=== PATIENT | male | born 1955 | race Caucasian/White ===

== ENCOUNTER 2021-04-19 04:45 | Emergency (ER) | payer MEDICARE, OTHER, SELFPAY ==
[2021-04-19 04:54] VITALS: BP 128/69; PULSE 77; RESP 17; TEMP 39.3; O2SAT 95; BMI 26.6
--- NOTE | 2021-04-19 05:13 | XRR_ITS ---
PROCEDURE INFORMATION: Exam: XR Chest Exam date and time: 04/19/2021 5:24 AM Age: 65 years old Clinical indication: Patient HX: Onset of fever this a. M. TECHNIQUE: Imaging protocol: XR of the chest. Views: 2 views. COMPARISON: No relevant prior studies available. FINDINGS: Lungs: There is a hazy retrocardiac opacity, which may represent atelectasis or pneumonia in the adequate clinical setting. Pleural spaces: Unremarkable. No pleural effusion. No pneumothorax. Heart/Mediastinum: Unremarkable. No cardiomegaly. Vasculature: Aortic arch atherosclerotic calcifications seen. Bones/joints: Unremarkable. XR/XR chest 2V* [id number] IMPRESSION: Left basilar atelectasis versus early pneumonia, clinical correlation is recommended.
--- NOTE | 2021-04-19 05:15 | ED_ITS ---
Documented by User: Thad Plata MD 04/19/21 05:17 HPI - Fever General: Chief Complaint: Fever Stated Complaint: Fever Time Seen by Provider: 04/19/21 04:48 Source: patient and family History of Present Illness: HPI Narrative: Patient is a well-appearing 65-year-old male from home by private vehicle accompanied by his seen for fever. He states that he was working in the presence of an employee outdoors over the last several days who complained of a fever and stomach bug. The illness was not so severe that he stopped working. The patient was asymptomatic until last night at which time he started to feel warm. He ate dinner as normally and went to bed. found him to be febrile and measured his forehead to be 105.0 Fahrenheit at roughly 3 in the morning. She decided to bring him to the hospital for evaluation. She states that he was somewhat altered and unsteady on his feet, but was able to walk to the car without any difficulty. He denies headache, visual disturbance, neck pain, pain with motion of the neck, chest pain, shortness of breath, cough, abdominal pain, nausea, dysuria, frequency, diarrhea, constipation. Vital signs on arrival were completely stable with exception of fever 102.7. He and his have not been vaccinated for COVID-19. He has no other acute complaints. Review of Systems General: Reports: 10 or more systems reviewed and unremarkable except in HPI and below Physical Exam Const: COMMON NORMALS: no acute distress, patient oriented x3 and alert OTHER: Patient is warm to the touch, but otherwise has a completely normal and reassuring exam. HENMT: COMMON NORMALS: normocephalic and atraumatic HEAD & SCALP: no rmocephalic and atraumatic Eye: COMMON NORMALS: Equal, round and reactive pupils present, EOMs intact bilaterally and no scleral icterus PUPIL: Yes Equal, round and reactive pupils present Resp: COMMON NORMALS: normal respiratory effort and No retractions Cardio: COMMON NORMALS: regular rate, regular rhythm and No murmurs present (Cardio) RATE: regular rate RHYTHM: regular rhythm GI: COMMON NORMALS: Normal to inspection, nondistended, normoactive bowel sounds present, Soft to palpation and non-tender PALPATION: Yes Soft to palpation Neuro: COMMON NORMALS: patient oriented x3 SENSORIUM/ORIENTATION: Yes alert Skin: COMMON NORMALS: no rashes or lesions noted GENERAL SKIN EXAM: no rashes or lesions noted Course Vital Signs: Vital signs: Vital Signs Temperature 102.7 F H 04/19/21 05:28 Pulse Rate 66 04/19/21 07:00 Respiratory Rate 18 04/19/21 07:00 Blood Pressure 120/59 04/19/21 07:00 Pulse Oximetry 92 04/19/21 07:00 MDM - Fever Lab Data: Labs: Lab Results 04/19/21 04/19/21 Range/Units 05:25 06:54 Urine Color Yellow (Yellow) Urine Appearance Clear (CLEAR) Urine pH 5 (5-7) Ur Specific Gravit y 1.020 (1.005-1.030) Urine Protein Trace (Negative) Urine Glucose (UA) Norm (Normal) Urine Ketones 1+ H (Negative) Urine Blood 2+ H (Negative) Urine Nitrate Negative (Negative) Urine Bilirubin Neg (Negative) Urine Urobilinogen Norm (Negative) mg/dL Ur Leukocyte Enriqueta ase Negative (Negative) Urine RBC 0-4 H (0-2) /hpf Urine WBC None (0-5) /hpf Ur Squamous Epith Cells 5-10 H (0-5) /hpf Amorphous Sediment Not Reportable Urine Bacteria 1+ H (NONE) /hpf Urine Mucus 3+ /hpf SARS-CoV-2 Ag (Rap id) Negative (Negative) Discharge Plan Discharge Patient Disposition: Home Clinical Impression: Viral infection, Pneumonia Condition: Stable Prescriptions: New doxycycline hyclate 100 mg capsule 100 mg PO BID 14 Days Qty: 28 RF: 0 Discharge Orders: Discharge ED (Routine); Ordered 04/19/21 Ordered By: Devonte Aguillon Discharge Diet: Usual diet Discharge Activity: Increase activity as tolerated Patient Instructions: Opioid Safety Sign Out Sign Out Data: Patient Sign Out occurred on 04/19/21 at 06:30. Patient's care was discussed, and care was transferred from to Devonte Aguillon DO. Coding Level of Care Code ED Storage Garage Manager for Chg Fwd Exam Detailed Documented by User: Devonte AdamsDO [email or web address] 04/19/21 08:23 HPI - Fever General: Chief Complaint: Fever Stated Complaint: Fever Time Seen by Provider: 04/19/21 04:48 Course Vital Signs: Vital signs: Vital Signs Temperature 102.7 F H 04/19/21 05:28 Pulse Rate 66 04/19/21 07:00 Respiratory Rate 18 04/19/21 07:00 Blood Pressure 120/59 04/19/21 07:00 Pulse Oximetry 92 04/19/21 07:00 MDM - Fever MDM Narrative: Medical decision making narrative: Care turned over from Dr. Plata at change of shift. Chart reviewed urine does not show any significant UTI does have a few squamous cells. Vital signs are stable. His chest x-ray shows questionable basilar infiltrate read by radiology as labs looks like it is actually bilateral. His Covid was negative on rapid. PCR has been sent out. His mentioned that he has had ticks lately. Organ to start him on doxycycline tick panel and blood cultures were done return if has further problems vital signs are stable at this point. He would be a candidate for monoclonal antibody infusions if his PCR comes back positive discussed this with him that is something they would be interested in doing and would return for we will call him when we get the PCR back. All other questions from the patient and his were answered and explicit exquisite detail. Lab Data: Labs: Lab Results 04/19/21 04/19/21 Range/Units 05:25 06:54 Urine Color Yellow (Yellow) Urine Appearance Clear (CLEAR) Urine pH 5 (5-7) Ur Specific Gravit y 1.020 (1.005-1.030) Urine Protein Trace (Negative) Urine Glucose (UA) Norm (Normal) Urine Ketones 1+ H (Negative) Urine Blood 2+ H (Negative) Urine Nitrate Negative (Negative) Urine Bilirubin Neg (Negative) Urine Urobilinogen Norm (Negative) mg/dL Ur Leukocyte Enriqueta ase Negative (Negative) Urine RBC 0-4 H (0-2) /hpf Urine WBC None (0-5) /hpf Ur Squamous Epith Cells 5-10 H (0-5) /hpf Amorphous Sediment Not Reportable Urine Bacteria 1+ H (NONE) /hpf Urine Mucus 3+ /hpf SARS-CoV-2 Ag (Rap id) Negative (Negative) Discharge Plan Discharge Patient Disposition: Home Clinical Impression: Viral infection, Pneumonia Condition: Stable Prescriptions: New doxycycline hyclate 100 mg capsule 100 mg PO BID 14 Days Qty: 28 RF: 0 Discharge Orders: Discharge ED (Routine); Ordered 04/19/21 Ordered By: Devonte Aguillon Discharge Diet: Usual diet Discharge Activity: Increase activity as tolerated Patient Instructions: Opioid Safety Sign Out Sign Out Data: Patient Sign Out occurred on 04/19/21 at 06:30. Patient's care was discussed, and care was transferred from to Devonte Aguillon DO. Coding Level of Care Code ED Storage Garage Manager for Chg Fwd Exam Detailed
[2021-04-19] MEDS: ibuprofen 600 mg Tablet PO (05:23)
[2021-04-19 05:28] VITALS: TEMP 39.3
[2021-04-19 05:55] LABS: SARS Covid-2 Antigen Negative (Negative)
[2021-04-19 06:11] VITALS: BP 129/57; PULSE 73; O2SAT 89
[2021-04-19 07:00] VITALS: BP 120/59; PULSE 66; RESP 18; O2SAT 92
[2021-04-19 07:46] LABS: Protein Urine Trace (Negative); Urine Appearance Clear (CLEAR); Urine Color Yellow (Yellow); pH Urine 5 (5-7)
[2021-04-19 07:47] LABS: Add Urine Culture? No; Add Urine Microscopic? YES; Bacteria Urine 1+ /hpf; Bilirubin Urine Neg (Negative); Blood Urine 2+ (Negative); Glucose Urine UA Norm (Normal); Ketones Urine 1+ (Negative); Leukocyte Esterase Urine Negative (Negative); Mucus Urine 3+ /hpf; Nitrate Urine Negative (Negative); RBC Urine 0-4 /hpf (0-2); Urobilinogen Urine Norm (Negative)
[2021-04-19 08:36] VITALS: BP 115/63; RESP 18; TEMP 37.1; O2SAT 96
[2021-04-19 14:33] LABS: Coronavirus Test Green County Not Detected
--- NOTE | 2021-04-19 18:27 | PC.NURSE ---
notified pt's spouse of negative COVID test results
[2021-04-20 11:52] LABS: Lyme AB Screen <0.90 index
[2021-04-25 17:23] LABS: E. Chaffeensis AB IGG <1:64; E. Chaffeensis AB IGM <1:20
[2021-04-26 17:13] LABS: RMSF IGG NOT DETECTED; RMSF IGM NOT DETECTED
== END 2021-04-19 08:50 | disposition home or self-care (01) ==
PROVIDERS: Student in an Organized Health Care Education/Training Program; Emergency Provider Family Medicine
DX: J18.9 Pneumonia, unspecified organism (principal); B34.9 Viral infection, unspecified; Z20.822 Contact with and (suspected) exposure to COVID-19
CPT/HCPCS: 36415; 71046; 81001; 86618; 86666; 86757; 87040; 87426; 87635; 99283

== ENCOUNTER 2021-05-02 16:14 | Emergency (ER) | payer MEDICARE, OTHER, SELFPAY ==
[2021-05-02] VITALS (7 sets, daily range): BP systolic 172–202; BP diastolic 99–107; PULSE 60–86; RESP 16–22; TEMP 36.6; O2SAT 98; BMI 25.7
--- NOTE | 2021-05-02 16:57 | ED_ITS ---
HPI - General Adult General: Chief complaint: General Medical Stated complaint: leg numbness and cramping Time Seen by Provider: 05/02/21 16:47 History of Present Illness: HPI narrative: This patient is a 65-year-old male who presents to the emergency department complaint of muscle cramps and muscle pain. Patient was seen in the emergency department 1 week ago for sudden onset of spiking fever. Patient did have tick titers drawn was started on doxycycline . Patient states he has been doing well but changed his diet updated the doxycycline. Patient states today started having some muscle cramps and pains where his legs feel weak. States yesterday after mowing the yard he really started having cramps. They progressed. Patient was seen at the PCPs office and had some labs drawn and they were going to the [employer] food store to get some health food supplements of magnesium. Patient states his legs gave out on him. Patient denies any significant pain or cramping at this time but describes soreness to his muscles. Patient also states his fingertips were tingling in his feet routinely earlier today. Right now everything feels fine. Patient denies any acute allergies or acute medical problems. Will do medical evaluation treat as needed Onset (ago): day(s) Radiation: non-radiation Severity: moderate Associated symptoms: Deny chest pain, dyspnea, headache(s), nausea, rash, palpitations or vomiting Review of Systems General: Reports: 10 or more systems reviewed and unremarkable except in HPI and below Const: Denies: fever(s), chills, body aches or fatigue Eyes: Denies: change in vision or blurry vision ENMT: Denies: throat pain, hoarseness or mouth pain Card: Denies: chest pain, palpitations, irregular heart rhythm, edema, swelling of feet/ankles or lightheadedness Resp: Denies: dyspnea, productive cough, non-productive cough, wheezing or pain on inspiration GI: Denies: abdominal pain, nausea or vomiting : Denies: flank pain, dysuria, urinary frequency, urinary urgency or urinary hesitancy Musc: Reports: extremity pain; Denies: neck pain, back pain, extremity swelling, joint pain, joint swelling, joint redness, joint warmth or limited range of motion Skin/Breast: Denies: rash, pruritus, erythema or skin tenderness Neuro: Denies: headache(s), numbness in extremities or weakness in extremities Psych: Denies: anxiety or depression Physical Exam Const: COMMON NORMALS: no acute distress, average body habitus, patient oriented x3, no limitations, healthy appearing, alert and well nourished HENMT: COMMON NORMALS: normocephalic, atraumatic, hearing grossly normal bilaterally, external ears normal, EAC's normal, TM's normal bilaterally, Normal external nose present, Normal nasal mucous membranes and turbinates present, moist oral mucous membranes, oropharynx normal, dentition normal and gingiva normal HEAD & SCALP: normocephalic and atraumatic NOSE: Normal external nose present and Normal nasal mucous membranes and turbinates present EXTERNAL EAR: Yes external ears normal EXTERNAL AUDITORY CANAL: EAC's normal TYMPANIC MEMBRANE: TM's normal bilaterally Neck/C-Spine: COMMON NORMALS: full ROM, no lymphadenopathy, supple, no meningeal signs, no JVD, Thyroid normal and No carotid bruits THYROID: Thyroid normal Chest: COMMONS NORMALS: normal inspection of the chest, normal palpation of entire chest wall, normal inspection of the breasts and normal palpation of the breasts Breast/axilla inspection: Yes normal inspection of the breasts BREAST/AXILLA PALPATION: Yes normal palpation of the breasts Resp: COMMON NORMALS: normal respiratory effort, No retractions, No use of accessory muscles, clear to auscultation bilaterally and percussion normal AUSCULTATION: clear to auscultation bilaterally PERCUSSION: percussion normal Cardio: COMMON NORMALS: no JVD, regular rate, regular rhythm, S1 normal heart sound present, S2 normal heart sound present, No gallops present (Cardio), No clicks present (Cardio), No murmurs present (Cardio), No rub (Cardio) and Peripheral pulses 2+ throughout RATE: regular rate RHYTHM: regular rhythm HEART SOUNDS: S1 normal heart sound present and S2 normal heart sound present PERIPHERAL PULSES: Peripheral pulses 2+ throughout GI: COMMON NORMALS: Normal to inspection, nondistended, normoactive bowel sounds present, Soft to palpation, non-tender, No hepatosplenomegaly present, no masses and no bruits PALPATION: Yes Soft to palpation and Yes No hepatosplenomegaly present : COMMON NORMALS: Yes no CVA tenderness BLADDER/KIDNEY EXAM: Yes no CVA tenderness Back/Pelvis: COMMON NORMALS: no CVA tenderness, thoracic and lumbar spine normal to inspection, no thoracic nor lumbar tenderness, thoraco-lumbar ROM normal and straight leg raise negative bilaterally Extremity: COMMON NORMALS: normal to inspection, full ROM, capillary refill normal, no joint enlargement, no clubbing, cyanosis or edema, no calf tenderness and no pedal edema Neuro: COMMON NORMALS: patient oriented x3 SENSORIUM/ORIENTATION: Yes alert MENINGEAL SIGNS: Yes no meningeal signs Course Reevaluation(s): Reevaluation #1: Patient much improved after morphine. Patient's blood pressure down to 170/80. Did discuss at length with patient about arthralgias./Possible medication side effects of doxycycline. Await his current viral illness. Tick titers were negative for any acute findings. Discussed at length with patient about good blood pressure low control. Patient was offered additional blood pressure medication to help control blood pressure. Patient declines any additional prescriptions at this time Take all medications as prescribed. Keep blood pressure log as instructed. Avoid salt and caffeinated drinks. Follow-up with your primary care physician with blood pressure log and discuss possible other options for blood pressure control. Also discuss further with your PCP about any medications for pain if medication is not helping. Follow-up with primary care physician in 3 to 5 days after discharge from the ER. Time: 20:09 Vital Signs: Vital signs: Vital Signs Temperature 97.9 F 05/02/21 16:28 Pulse Rate 60 05/02/21 17:21 Respiratory Rate 20 H 05/02/21 19:35 Blood Pressure 198/103 05/02/21 17:21 Pulse Oximetry 98 05/02/21 17:21 MDM - General Adult MDM Narrative: Medical decision making narrative: Patient much improved after morphine. Patient's blood pressure down to 170/80. Did discuss at length with patient about arthralgias./Possible medication side effects of doxycycline. Await his current viral illness. Tick titers were negative for any acute findings. Discussed at length with patient about good blood pressure low control. Take all medications as prescribed. Keep blood pressure log as instructed. Avoid salt and caffeinated drinks. Follow-up with your primary care physician with blood pressure log and discuss possible other options for blood pressure control. Also discuss further with your PCP about any medications for pain if medication is not helping. Follow-up with primary care physician in 3 to 5 days after discharge from the ER. Medical Records: Attestation: I reviewed the patient's medical records. Lab Data: Attestation: I reviewed the patient's lab results. Labs: Lab Results 05/02/21 05/02/21 05/02/21 Range/Units 17:15 17:15 17:15 WBC 11.3 H (4.0-10.0) 10^3/ uL RBC 4.83 (4.1-5.3) 10^6/u L Hgb 15.1 (11.7-16.6) g/dL Hct 45.6 (42.0-52.0) % MCV 94.4 H (80-94) fL MCH 31.3 (28.0-34.0) pg MCHC 33.1 (30.0-36.0) g/dL RDW 12.6 (12.1-15.1) % Plt Count 286 (130-400) 10^3/c mm MPV 10.7 H (7.4-10.4) fL Neut % (Auto) 48.9 % Lymph % (Auto) 42.2 % [place] % (Auto) 7.7 % Eos % (Auto) 0.4 % Baso % (Auto) 0.4 % Neut # (Auto) 5.56 (1.8-7.7) 10^3/u L Lymph # (Auto) 4.8 (0.8-4.8) 10^3/u L [place] # (Auto) 0.9 (0.2-0.9) 10^3/u L Eos # (Auto) 0.1 (0.0-0.8) 10^3/u L Baso # (Auto) 0.0 (0.0-0.1) 10^3/u L Nucleated RBC % (a uto) 0 % Nucleated RBCs # 0.0 /100WBC Sodium Cancelled Potassium Cancelled Chloride Cancelled Carbon Dioxide Cancelled Anion Gap Cancelled BUN Cancelled Creatinine Cancelled GFR Calculation Cancelled Glucose Cancelled Calculated Osmolal ity Cancelled Calcium Cancelled Magnesium Cancelled Total Bilirubin Cancelled AST Cancelled ALT Cancelled Alkaline Phosphata se Cancelled Creatine Kinase (39-308) U/L Total Protein Cancelled Albumin Cancelled Globulin Cancelled Urine Color Yellow (Yellow) Urine Appearance Clear (CLEAR) Urine pH 7 (5-7) Ur Specific Gravit y 1.010 (1.005-1.030) Urine Protein Neg (Negative) Urine Glucose (UA) Norm (Normal) Urine Ketones Negative (Negative) Urine Blood Neg (Negative) Urine Nitrate Negative (Negative) Urine Bilirubin Neg (Negative) Urine Urobilinogen Norm (Negative) mg/dL Ur Leukocyte Enriqueta ase Negative (Negative) 05/02/21 05/02/21 Range/Units 18:04 18:04 WBC (4.0-10.0) 10^3/ uL RBC (4.1-5.3) 10^6/u L Hgb (11.7-16.6) g/dL Hct (42.0-52.0) % MCV (80-94) fL MCH (28.0-34.0) pg MCHC (30.0-36.0) g/dL RDW (12.1-15.1) % Plt Count (130-400) 10^3/c mm MPV (7.4-10.4) fL Neut % (Auto) % Lymph % (Auto) % [place] % (Auto) % Eos % (Auto) % Baso % (Auto) % Neut # (Auto) (1.8-7.7) 10^3/u L Lymph # (Auto) (0.8-4.8) 10^3/u L [place] # (Auto) (0.2-0.9) 10^3/u L Eos # (Auto) (0.0-0.8) 10^3/u L Baso # (Auto) (0.0-0.1) 10^3/u L Nucleated RBC % (a uto) % Nucleated RBCs # /100WBC Sodium 137 Potassium 4.0 Chloride 104 Carbon Dioxide 24 Anion Gap 13.0 BUN 12 Creatinine 0.5 L GFR Calculation 165.9 H Glucose 92 Calculated Osmolal ity 283 L Calcium 8.5 Magnesium 2.2 Total Bilirubin 0.4 AST 21 ALT 35 Alkaline Phosphata se 54 Creatine Kinase 81 (39-308) U/L Total Protein 6.9 Albumin 3.6 Globulin 3.3 Urine Color (Yellow) Urine Appearance (CLEAR) Urine pH (5-7) Ur Specific Gravit y (1.005-1.030) Urine Protein (Negative) Urine Glucose (UA) (Normal) Urine Ketones (Negative) Urine Blood (Negative) Urine Nitrate (Negative) Urine Bilirubin (Negative) Urine Urobilinogen (Negative) mg/dL Ur Leukocyte Enriqueta ase (Negative) Discharge Plan Discharge Patient Disposition: Home Clinical Impression: Arthralgia, Medication side effect, Hypertension Condition: Stable Prescriptions: New diclofenac sodium 75 mg tablet,delayed release (DR/EC) 75 mg PO BID PRN (Reason: pain) Qty: 20 RF: 0 No Action PreserVision AREDS [id number] Capsule 1 cap PO BID@0800,1800 RF: 0 Bystolic 5 mg tablet 5 mg PO DAILY@0800 RF: 0 Fish Oil 1 cap PO DAILY@0800 RF: 0 Vitamin D3 1 tab PO DAILY@0800 RF: 0 doxycycline hyclate 100 mg capsule 100 mg PO BID@0800,1800 RF: 0 Discharge Orders: Discharge ED (Routine); Ordered 05/02/21 Ordered By: Cam Varghese Discharge Diet: Advance as tolerated Discharge Activity: Increase activity as tolerated Patient Instructions: Opioid Safety Activity Restrictions/Additional Instructions: Alternate heat and ice as needed. Epson salt baths as needed. Take all medications as prescribed. Keep blood pressure log as instructed. Avoid salt and caffeinated drinks. Follow-up with your primary care physician with blood pressure log and discuss possible other options for blood pressure control. Also discuss further with your PCP about any medications for pain if medication is not helping. Follow-up with primary care physician in 3 to 5 days after discharge from the ER. Coding Level of Care Code ED Analog Design Engineer for Porfirio Fwkingsley Exam Comprehensive
[2021-05-02] MEDS: sodium chloride 0.9% 1,000 ML 999 ML IV (17:17)
[2021-05-02 17:25] LABS: Add Urine Microscopic? NO; Charge for UA Resulting for Rev
[2021-05-02 17:37] LABS: Basophils % 0.4 %; Eosinophils # 0.1 10^3/uL (0.0-0.8); Eosinophils % 0.4 %; Hematocrit 45.6 % (42.0-52.0); Hemoglobin 15.1 g/dL (11.7-16.6); Lymphocytes # 4.8 10^3/uL (0.8-4.8); Lymphocytes % 42.2 %; Mean Corpuscular HGB Conc 33.1 g/dL (30.0-36.0); Mean Corpuscular Hemoglobin 31.3 pg (28.0-34.0); Mean Corpuscular Volume 94.4 fL (80-94); Mean Platelet Volume 10.7 fL (7.4-10.4); Monocytes # 0.9 10^3/uL (0.2-0.9); Monocytes % 7.7 %; Neutrophils # 5.56 10^3/uL (1.8-7.7); Neutrophils % 48.9 %; Nucleated Red Blood Cells % 0 %; Platelet Count 286 10^3/cmm (130-400); Red Blood Count 4.83 10^6/uL (4.1-5.3); Red Cell Distribution Width 12.6 % (12.1-15.1); White Blood Count 11.3 10^3/uL (4.0-10.0)
[2021-05-02 17:58] LABS: Bilirubin Urine Neg (Negative); Blood Urine Neg (Negative); Glucose Urine UA Norm (Normal); Ketones Urine Negative (Negative); Leukocyte Esterase Urine Negative (Negative); Nitrate Urine Negative (Negative); Protein Urine Neg (Negative); Urine Appearance Clear (CLEAR); Urine Color Yellow (Yellow); Urobilinogen Urine Norm (Negative); pH Urine 7 (5-7)
[2021-05-02 18:43] LABS: Alanine Aminotransferase 35 U/L (0-41); Albumin Level 3.6 g/dL (3.5-5.2); Alkaline Phosphatase 54 IU/L (40-130); Aspartate Amino Transferase 21 U/L (0-40); Blood Urea Nitrogen 12 mg/dL (8-23); Calcium 8.5 mg/dL (8.5-10.5); Carbon Dioxide 24 mmol/L (22-29); Chloride 104 mmol/L (98-107); Globulin 3.3 g/dL (1.3-4.6); Glomerular Filtration Rate 165.9 mL/min (90-130); Glucose 92 mg/dL (65-115); Magnesium 2.2 mg/dL (1.7-2.3); Osmolality Calculated 283 mOsm/kg (285-295); Sodium 137 mmol/L (136-145); Total Bilirubin 0.4 mg/dL (0.15-1.2); Total Protein 6.9 g/dL (6.6-8.7)
[2021-05-02 19:01] LABS: Creatine Phosphokinase 81 U/L (39-308)
[2021-05-02] MEDS: ondansetron 2 mg/ML SDV 2 mL 4 MG IVP (19:30)
[2021-05-02] MEDS: morphine 4 mg/mL SDV 1 mL 2 MG IVP (19:35)
--- NOTE | 2021-05-02 20:40 | PC.NURSE ---
pt's very anxious and concerned about pt being discharged to home. [email or web address]
--- NOTE | 2021-05-02 20:44 | PC.NURSE ---
patient presented to waiting room after discharging patient; she requested to speak with the physician. Dr. Varghese and I met with the in the triage room after the patient had been discharged; during the transfer from the wheelchair to the car, the patient felt weak in the legs, but was able to transfer eventually to the car. The came back in to speak about her concerns and why we didn't find anything. Dr. Varghese explained his work up, his findings, his treatments to lower blood pressure and the offer to prescribe BP meds for home, like Norvasc. However, they declined for not wanting Meds from [facility]. Dr. Varghese offered to bring the patient back in for further evaluations but the stated no it's fine and walked out.
== END 2021-05-02 20:20 | disposition home or self-care (01) ==
PROVIDERS: Emergency Provider Emergency Medicine
DX: M25.50 Pain in unspecified joint (principal); T50.905A Adverse effect of unspecified drugs, medicaments and biological substances, initial encounter; I10 Essential (primary) hypertension
CPT/HCPCS: 80053; 81003; 82550; 83735; 85025; 96361; 96374; 96375; 99283; J2270; J2405; J7030

== ENCOUNTER 2021-07-28 06:00 | Outpatient (RCR) | payer MEDICARE, OTHER, SELFPAY | END 2021-08-24 23:59 | disposition home or self-care (01) | LOC: SPO 06:00 | PROVIDERS: Referring Provider Nurse Practitioner Family; Visit Provider Nurse Practitioner Family | DX: R26.89 Other abnormalities of gait and mobility (principal); Z84.89 Family history of other specified conditions; M26.81 Anterior soft tissue impingement | CPT/HCPCS: 97110; 97112; 97116; 97161; 97167; 97530 ==

== ENCOUNTER 2021-08-25 06:00 | Outpatient (RCR) | payer MEDICARE, OTHER, SELFPAY | END 2021-09-24 23:59 | disposition home or self-care (01) | LOC: SPO 06:00 | PROVIDERS: Referring Provider Nurse Practitioner Family; Visit Provider Nurse Practitioner Family | DX: G61.0 Guillain-Barre syndrome (principal) | CPT/HCPCS: 97110; 97112; 97116; 97530; 97535 ==

== ENCOUNTER 2021-09-25 06:00 | Outpatient (RCR) | payer MEDICARE, OTHER, SELFPAY | END 2021-10-24 23:59 | disposition home or self-care (01) | LOC: SPO 06:00 | PROVIDERS: Visit Provider Nurse Practitioner Family | DX: Z87.898 Personal history of other specified conditions (principal) | CPT/HCPCS: 97110; 97530; 97535 ==

== ENCOUNTER 2021-10-25 12:26 | Outpatient (RCR) | payer MEDICARE, OTHER, SELFPAY | END 2021-11-24 23:59 | disposition home or self-care (01) | LOC: SPO 12:26 | PROVIDERS: Visit Provider Nurse Practitioner Family | DX: G61.0 Guillain-Barre syndrome (principal) | CPT/HCPCS: 97110 ==

== ENCOUNTER 2021-11-25 06:00 | Outpatient (RCR) | payer MEDICARE, OTHER, SELFPAY | END 2021-12-25 23:59 | disposition home or self-care (01) | LOC: SPO 06:00 | PROVIDERS: Visit Provider Nurse Practitioner Family | DX: G61.0 Guillain-Barre syndrome (principal) | CPT/HCPCS: 97110 ==

== ENCOUNTER 2021-12-26 06:00 | Outpatient (RCR) | payer MEDICARE, OTHER, SELFPAY | END 2022-01-22 23:59 | disposition home or self-care (01) | LOC: SPO 06:00 | PROVIDERS: Visit Provider Nurse Practitioner Family | DX: G61.0 Guillain-Barre syndrome (principal) | CPT/HCPCS: 97110 ==

== ENCOUNTER 2023-04-05 11:41 | Outpatient (CLI) | payer MEDICARE, OTHER, SELFPAY ==
[2023-04-05 11:59] LABS: Basophils % 0.6 %; Eosinophils # 0.2 10^3/uL (0.0-0.8); Eosinophils % 2.7 %; Hematocrit 38.8 % (42.0-52.0); Hemoglobin 12.3 g/dL (11.7-16.6); Lymphocytes # 1.8 10^3/uL (0.8-4.8); Lymphocytes % 27.5 %; Mean Corpuscular HGB Conc 31.7 g/dL (30.0-36.0); Mean Corpuscular Hemoglobin 29.9 pg (28.0-34.0); Mean Corpuscular Volume 94.4 fl (80-94); Mean Platelet Volume 10.3 fL (7.4-10.4); Monocytes # 0.6 10^3/uL (0.2-0.9); Monocytes % 9.4 %; Neutrophils # 3.87 10^3/uL (1.8-7.7); Neutrophils % 58.6 %; Nucleated Red Blood Cells % 0 %; Platelet Count 289 10^3/cmm (130-400); Red Blood Count 4.11 10^6/uL (4.1-5.3); Red Cell Distribution Width 13.4 % (12.1-15.1); White Blood Count 6.6 10^3/uL (4.0-10.0)
[2023-04-05 12:06] LABS: Erythrocyte Sedimentation Rate 34 mm/hr (0-10)
[2023-04-05 12:38] LABS: Alanine Aminotransferase 17 U/L (0-41); Albumin Level 3.9 g/dL (3.5-5.2); Alkaline Phosphatase 51 U/L (40-130); Anion Gap 14.5 (5-19); Aspartate Amino Transferase 16 U/L (0-40); Blood Urea Nitrogen 21 mg/dL (8-23); C Reactive Protein 6.2 mg/L (0.0-4.9); Calcium 8.6 mg/dL (8.5-10.5); Carbon Dioxide 25 mmol/L (22-29); Chloride 107 mmol/L (98-107); Globulin 2.3 g/dL (1.3-4.6); Glomerular Filtration Rate 95.8 mL/min (90-130); Glucose 76 mg/dL (65-115); Osmolality Calculated 296 mOsm/kg (285-295); Potassium 4.5 mmol/L (3.5-5.1); Sodium 142 mmol/L (136-145); Total Bilirubin 0.2 mg/dL (0.15-1.2); Total Protein 6.2 g/dL (6.6-8.7)
== END 2023-04-05 11:42 | disposition home or self-care (01) ==
LOC: LAB 11:49
PROVIDERS: PCP Internal Medicine Infectious Disease; Visit Provider Internal Medicine Infectious Disease
DX: A41.9 Sepsis, unspecified organism (principal)
CPT/HCPCS: 80053; 85025; 85651; 86140

== ENCOUNTER 2023-04-15 11:14 | Outpatient (CLI) | payer MEDICARE, OTHER, SELFPAY ==
[2023-04-15 11:39] LABS: Basophils # 0.1 10^3/uL (0.0-0.1); Basophils % 1.3 %; Eosinophils # 0.1 10^3/uL (0.0-0.8); Eosinophils % 1.5 %; Hematocrit 40.8 % (42.0-52.0); Hemoglobin 12.7 g/dL (11.7-16.6); Lymphocytes # 1.2 10^3/uL (0.8-4.8); Lymphocytes % 22.6 %; Mean Corpuscular HGB Conc 31.1 g/dL (30.0-36.0); Mean Corpuscular Hemoglobin 29.6 pg (28.0-34.0); Mean Corpuscular Volume 95.1 fl (80-94); Mean Platelet Volume 12.3 fL (7.4-10.4); Monocytes # 0.5 10^3/uL (0.2-0.9); Neutrophils # 3.48 10^3/uL (1.8-7.7); Neutrophils % 64.2 %; Nucleated Red Blood Cells % 0 %; Platelet Count 164 10^3/cmm (130-400); Red Blood Count 4.29 10^6/uL (4.1-5.3); White Blood Count 5.4 10^3/uL (4.0-10.0)
[2023-04-15 11:47] LABS: Erythrocyte Sedimentation Rate 10 mm/hr (0-10)
[2023-04-15 12:06] LABS: Alanine Aminotransferase 11 U/L (0-41); Albumin Level 3.8 g/dL (3.5-5.2); Alkaline Phosphatase 62 U/L (40-130); Aspartate Amino Transferase 12 U/L (0-40); Blood Urea Nitrogen 16 mg/dL (8-23); Carbon Dioxide 25 mmol/L (22-29); Chloride 104 mmol/L (98-107); Globulin 2.1 g/dL (1.3-4.6); Glomerular Filtration Rate 95.8 mL/min (90-130); Glucose 89 mg/dL (65-115); Osmolality Calculated 289 mOsm/kg (285-295); Sodium 139 mmol/L (136-145); Total Bilirubin 0.3 mg/dL (0.15-1.2); Total Protein 5.9 g/dL (6.6-8.7)
== END 2023-04-15 11:15 | disposition home or self-care (01) ==
PROVIDERS: PCP Internal Medicine Infectious Disease; Visit Provider Internal Medicine Infectious Disease
DX: A41.9 Sepsis, unspecified organism (principal)
CPT/HCPCS: 80053; 85025; 85651; 86140